=== PATIENT | female | born 1995 | race Asian ===

== ENCOUNTER 2023-04-16 08:25 | Inpatient (IN) | payer BC ==
[2023-04-16] MEDS: ELECTROLYTE-148 SOLN 1,000 ML IV SCH ×2 (10:15→21:45)
[2023-04-16] MEDS ORDERED: OXYTOCIN 30 UNITS in 0.9% NS 30 UNIT/500 ML INFUS.BAG IVPB ONE (10:26)
[2023-04-16] MEDS ORDERED: AMPICILLIN SODIUM 2 GM VIAL ONE (10:26)
[2023-04-16] MEDS ORDERED: OXYTOCIN 30 UNITS in 0.9% NS 30 UNIT/500 ML INFUS.BAG IVPB SCH (10:30)
[2023-04-16] MEDS: AMPICILLIN - 2 GM in SODIUM CHLORIDE 100 ML IVPB ONE ×2 (10:30→10:49)
[2023-04-16 10:39] VITALS: BMI 20.6
[2023-04-16 11:30] LABS: BASO % 0.5 % (0-2.0); EOS % 0.5 % (0-4.5); HEMATOCRIT 33.4 % (32.4-45.2); HEMOGLOBIN 11.8 GM/dL (10.7-15.3); LYMPH % 17.1 % (8-40); MCH 32.9 pg (25.7-33.7); MCHC 35.2 g/dl (32.0-36.0); MEAN CELL VOLUME 93.4 fl (80-96); MEAN PLT VOLUME 7.4 fl (7.5-11.1); MONO % 7.6 % (3.8-10.2); NEUT % 74.3 % (42.8-82.8); PLATELET COUNT 138 10^3/uL (134-434); RBC 3.58 M/mm3 (3.60-5.2); RDW 12.6 % (11.6-15.6); WHITE BLOOD COUNT 5.9 K/mm3 (4.0-10.0)
[2023-04-16 11:36] LABS: INR 0.96 (0.83-1.09); PROTHROMBIN TIME (PATIENT) 11.1 SEC (9.7-13.0)
[2023-04-16 11:39] LABS: ACTIVATED PTT 28.7 SECONDS (25.2-36.5)
[2023-04-16 11:46] LABS: POTASSIUM 4.7 mmol/L (3.5-5.1)
[2023-04-16 11:47] LABS: CALCIUM 8.5 mg/dL (8.5-10.1)
[2023-04-16 11:51] LABS: CREATININE 0.5 mg/dL (0.55-1.3)
[2023-04-16 13:41] LABS: HIV INTERPRETATION NEGATIVE (NEGATIVE)
[2023-04-16] MEDS ORDERED: AMPICILLIN - 1 GM in SODIUM CHLORIDE 100 ML IVPB SCH (14:00)
[2023-04-16] MEDS ORDERED: FENTANYL/BUPIVACAINE/NS/PF - PCEA - 50 ML DISP.SYRIN EP ONE ×3 (14:55→22:52)
[2023-04-16] MEDS ORDERED: BUPIVACAINE HCL/PF 0.25% (2.5MG/ML) 10 ML VIAL ONE ×4 (14:58→21:48)
[2023-04-16] MEDS ORDERED: LIDO 2%/EPI 1:200000 PRESRVFRE (20 ML SDVIAL) ONE (14:59)
[2023-04-16] MEDS: FENTANYL/BUPIVACAINE/NS/PF - PCEA - 50 ML DISP.SYRIN EP SCH ×2 (15:15→20:00)
[2023-04-16] MEDS ORDERED: NALOXONE HCL 0.4 MG/ML VIAL IVPUSH PRN (15:22)
[2023-04-16] MEDS ORDERED: FENTANYL CITRATE/PF 50 MCG/ML VIAL ONE (21:53)
[2023-04-16] MEDS ORDERED: DEXTROSE 5%-LACTATED RINGERS 1,000 ML IV SCH (22:15)
[2023-04-16] MEDS ORDERED: LIDOCAINE HCL 1% PRESERVATIVE FREE - 30ML VIAL ONE (23:20)
[2023-04-16] MEDS ORDERED: OXYTOCIN 20 UNITS in 0.9% NS 20 UNIT/1,000 ML INFUS.BAG IV ONE (23:20)
[2023-04-17] MEDS ORDERED: BISACODYL 10 MG SUPP.RECT RC PRN (00:03)
[2023-04-17] MEDS ORDERED: BENZOCAINE 28 GM HEMORRHOIDAL OINTMENT TP PRN (00:03)
[2023-04-17] MEDS ORDERED: oxyCODONE HCL 5 MG TABLET PO PRN (00:03)
[2023-04-17] MEDS ORDERED: WITCH HAZEL 50% (TUCKS) 40 PAD/JAR PAD TP PRN (00:03)
[2023-04-17] MEDS ORDERED: ACETAMINOPHEN 325 MG TABLET (FP) PO PRN (00:03)
[2023-04-17] MEDS ORDERED: BENZOCAINE 20% 57 GM BOTTLE TP PRN (00:03)
[2023-04-17] MEDS ORDERED: METHYLERGONOVINE MALEATE 0.2 MG/1 ML AMP IM PRN (00:03)
[2023-04-17] MEDS ORDERED: OXYTOCIN 20 UNITS in 0.9% NS 20 UNIT/1,000 ML INFUS.BAG IV SCH (00:15)
[2023-04-17] MEDS: IBUPROFEN 600 MG TABLET (FP) PO PRN ×3 (02:43→20:08)
[2023-04-17 08:36] LABS: HEMATOCRIT 31.8 % (32.4-45.2); HEMOGLOBIN 11.2 GM/dL (10.7-15.3); MCH 33.2 pg (25.7-33.7); MCHC 35.2 g/dl (32.0-36.0); MEAN CELL VOLUME 94.3 fl (80-96); MEAN PLT VOLUME 8.6 fl (7.5-11.1); PLATELET COUNT 122 10^3/uL (134-434); RBC 3.37 M/mm3 (3.60-5.2); RDW 12.4 % (11.6-15.6); WHITE BLOOD COUNT 16.6 K/mm3 (4.0-10.0)
[2023-04-17] MEDS: PRENATAL VITAMINS W/ FOLIC ACID TABLET (FP) PO SCH (09:02)
[2023-04-18] MEDS: PRENATAL VITAMINS W/ FOLIC ACID TABLET (FP) PO SCH (09:31)
[2023-04-18] MEDS: IBUPROFEN 600 MG TABLET (FP) PO PRN (11:42)
[2023-04-18 13:23] VITALS: BP 113/68; PULSE 61; RESP 18; TEMP 97.8
[2023-04-18] MEDS ORDERED: SENNOSIDES/DOCUSATE COMBO (SENNA PLUS) TABLET (UD) PO PRN (22:00)
== END 2023-04-18 21:20 | disposition home or self-care (01) | DRG 807 ==
LOC: JDEL 08:25 → JLDR 09:45 → J3W 04-17 02:18
PROVIDERS: ADMIT Obstetrics & Gynecology; ATTEND Obstetrics & Gynecology
PROC: 10E0XZZ Delivery of Products of Conception, External Approach (ICD-10-PCS; principal; 2023-04-16)
DX: O42.02 Full-term premature rupture of membranes, onset of labor within 24 hours of rupture (principal); Z37.0 Single live birth; O70.0 First degree perineal laceration during delivery; O69.81X0 Labor and delivery complicated by cord around neck, without compression, not applicable or unspecified; Z3A.37 37 weeks gestation of pregnancy
CPT/HCPCS: 36415; 80048; 85025; 85027; 85610; 85730; 86780; 86850; 86900; 86901; 87389